=== PATIENT | male | born 1980 | race African-American/Black ===

== ENCOUNTER 2024-12-18 11:01 | Emergency (ER) | payer OTHER ==
[~2024-12-18] VITALS: Ht 177.8 cm; Wt 93.0 kg
[2024-12-18] MEDS ORDERED: MORPHINE SULFATE IV STA (11:09)
[2024-12-18] MEDS ORDERED: MORPHINE SULFATE ONE (11:12)
[2024-12-18] MEDS ORDERED: NS 1000ML 1,000 ML ONE (11:12)
[2024-12-18] MEDS ORDERED: ZOFRAN ONE (11:12)
[2024-12-18 11:16] VITALS: BP 139/83; PULSE 61; RESP 16; TEMP 35.61396; O2SAT 96
[2024-12-18] MEDS ORDERED: OFIRMEV 100 ML IV ONE (11:17)
[2024-12-18] MEDS: OFIRMEV 100 ML IV STA (11:21)
[2024-12-18] MEDS: ZOFRAN IV STA (11:21)
[2024-12-18] MEDS: NS 1000ML 1,000 ML IV STA (11:21)
[2024-12-18 11:28] LABS: BASOPHIL # 0.1 10^3/uL (0.0-0.1); BASOPHIL % 0.8 % (0.2-1.2); EOSINOPHIL # 0.1 10^3/uL (0.0-0.2); EOSINOPHIL % 1.4 % (0.0-5.0); HEMATOCRIT(ML) 45.8 % (37.0-53.0); HEMOGLOBIN 15.3 g/dL (13.9-16.3); LYMPHOCYTES # 1.66 10^3/uL1 (1.0-4.8); LYMPHOCYTES % 25.3 % (24.0-44.0); MEAN CORP HGB 28.5 pg (26-34); MEAN CORP HGB CONCENTRATION 33.4 g/dL (33-36.5); MEAN CORP VOLUME 85.4 fL (78-100); MONOCYTES # 0.5 10^3/uL (0.3-0.8); MONOCYTES % 7.6 % (5.0-12.0); NEUTROPHIL # 4.3 10^3/uL (1.8-7.7); NEUTROPHILS % 64.7 % (41.0-85.0); PLATELET COUNT 168 10^3/uL (150-400); RED BLOOD CELL 5.36 10^6/uL (4.50-5.90); WHITE BLOOD CELL 6.6 10^3/uL (4.5-11.0)
[2024-12-18 11:30] LABS: +ADD MANUAL DIFF(NO CHRG) NO
[2024-12-18 11:44] LABS: ALBUMIN(ML) 3.7 g/dL (3.4-5.0); ALBUMIN/GLOBULIN RATIO 1.233; ANION GAP 10.7; BUN/CREATININE RATIO 9.37 (10.0-20.0); CALCIUM 8.2 mg/dL (8.4-10.5); CARBON DIOXIDE 24.4 mmol/L (20.0-32); CREATININE SERUM 0.96 mg/dL (0.59-1.40); EST GFR, NON-AA 85.5 (>/=60); POTASSIUM 4.1 mmol/L (3.6-5.2)
[2024-12-18 11:45] LABS: PROTHROMBIN PROTIME 10.6 SEC (9.3-11.6)
[2024-12-18 12:42] LABS: BILIRUBIN,URINE NEGATIVE (NEGATIVE); LEUKOCYTE ESTERASE ,URINE NEGATIVE (NEGATIVE); NITRATE,URINE NEGATIVE (NEGATIVE); PH,URINE 6.5 (4.5-8.0); UROBILINOGEN,URINE 0.2 E.U./dL (0.2)
[2024-12-18 12:51] LABS: APPEARANCE,URINE CLEAR; UA COLOR YELLOW
[2024-12-18 12:52] LABS: UAMPH METHAMP(SCRN) NEGATIVE (co1000ng/mL); UR MDMA (ECSTASY) SCRN NEGATIVE (c/o300ng/mL); UR METHADONE SCRN NEGATIVE (c/o300ng/mL); UR OPIATE SCRN PRESUMPTIVE POSITIVE (c/o300ng/mL); UR PHENCYCLIDINE (PCP) SCRN NEGATIVE (c/o 25ng/mL); UR TETRAHYDROCANNABINOL SCRN NEGATIVE (c/o 50ng/mL)
[2024-12-18 13:06] VITALS: BP 132/76; PULSE 64; RESP 16; TEMP 96.1; O2SAT 96
== END 2024-12-18 13:16 | disposition home or self-care (01) ==
LOC: EDBD 11:01 → ER 11:01
DX: K57.30 Diverticulosis of large intestine without perforation or abscess without bleeding (principal); K76.89 Other specified diseases of liver; F17.290 Nicotine dependence, other tobacco product, uncomplicated; Z79.899 Other long term (current) drug therapy
CPT/HCPCS: 96375; 96365; 99285; 74177; 80053; 85025; 80345; 82948; 36415; 83605; 80307; 81001; 83690; 85610; 85730; J2270; J7030; J0131; J2405; Q9965